=== PATIENT | female | born 1975 | race African-American/Black ===

== ENCOUNTER 2021-02-07 15:19 | Emergency (ER) | payer OTHER | END 2021-02-07 16:30 | disposition left against medical advice (07) | LOC: ER 15:19 | DX: Z53.21 Procedure and treatment not carried out due to patient leaving prior to being seen by health care provider (principal) ==

== ENCOUNTER 2022-10-09 00:04 | Emergency (ER) | payer MEDICAID, OTHER ==
[~2022-10-09] VITALS: Ht 162.6 cm; Wt 123.0 kg
[2022-10-09 00:10] VITALS: BP 162/86
[2022-10-09] MEDS ORDERED: IBUPROFEN 400MG TABLET PO ONE (01:15)
[2022-10-09] MEDS ORDERED: NAPR500T7 MT (03:26)
== END 2022-10-09 04:10 | disposition home or self-care (01) ==
LOC: ER 00:04
DX: S01.111A Laceration without foreign body of right eyelid and periocular area, initial encounter (principal); S69.92XA Unspecified injury of left wrist, hand and finger(s), initial encounter; Y04.0XXA Assault by unarmed brawl or fight, initial encounter; Y93.89 Activity, other specified; Y92.89 Other specified places as the place of occurrence of the external cause; Y99.8 Other external cause status
CPT/HCPCS: 12011; 73130; 99283